=== PATIENT | female | born 1975 | race Caucasian/White ===

== ENCOUNTER 2017-11-10 18:57 | Emergency (ER) | payer OTHER ==
[2017-11-10 21:46] LABS: ADD MAN DIFF? NO
[2017-11-10 21:58] LABS: BASOPHILS % 0.6 % (0.0-2.0); EOSINOPHILS # 0.2 10^3/ul (0.0-0.5); EOSINOPHILS % 2.5 % (0.0-7.0); HEMATOCRIT 40.7 % (37.0-47.0); HEMOGLOBIN 13.4 g/dl (12.0-16.0); LYMPHOCYTES # 2.5 10^3/ul (0.8-2.9); LYMPHOCYTES % 38.1 % (15.0-51.0); MEAN CORPUSCULAR HEMOGLOBIN 28.5 pg (29.0-33.0); MEAN CORPUSCULAR HGB CONC 32.9 g/dl (32.0-37.0); MEAN CORPUSCULAR VOLUME 86.6 fl (82.0-101.0); MEAN PLATELET VOLUME 11.6 fl (7.4-10.4); MONOCYTE # 0.3 10^3/ul (0.3-0.9); MONOCYTES % 3.9 % (0.0-11.0); NEUTROPHIL # 3.5 10^3/ul (1.6-7.5); NEUTROPHILS % 54.6 % (39.0-77.0); PLATELET COUNT 203 10^3/UL (140-415); RED CELL DISTRIBUTION WIDTH 13.3 % (11.5-14.5)
[2017-11-10 21:58] LABS: WHITE BLOOD COUNT 6.5 10^3/ul (4.8-10.8)
[2017-11-10] MEDS: KETOROLAC 30 MG INJ IV (22:09)
[2017-11-10 22:33] LABS: ANION GAP 13 (8-16); BLOOD UREA NITROGEN 8 mg/dl (7-20); CALCIUM 9.6 mg/dl (8.4-10.2); CARBON DIOXIDE 23 mmol/L (21-31); CHLORIDE 110 mmol/L (97-110); CREATININE 0.65 mg/dl (0.44-1.00); GLUCOSE 94 mg/dl (70-220); POTASSIUM 3.8 mmol/L (3.5-5.1); SODIUM 142 mmol/L (135-144)
[2017-11-10 22:44] LABS: TROPONIN-I < 0.012 ng/ml (0.000-0.120)
== END 2017-11-10 23:16 | disposition home or self-care (01) ==
LOC: E/R 18:57
DX: R07.89 Other chest pain (principal); R40.2142 Coma scale, eyes open, spontaneous, at arrival to emergency department; R40.2252 Coma scale, best verbal response, oriented, at arrival to emergency department; R40.2362 Coma scale, best motor response, obeys commands, at arrival to emergency department
CPT/HCPCS: 36415; 71045; 80048; 81025; 84484; 85025; 93005; 96374; 99285-25

== ENCOUNTER 2018-02-27 17:35 | Emergency (ER) | payer OTHER ==
[2018-02-27 19:51] LABS: URINE PH (Dip) POC 6.5 (5.0-8.5)
[2018-02-27 19:51] LABS: URINE BLOOD (Dip) POC Negative (NEGATIVE); URINE GLUCOSE (Dip) POC Negative (NEGATIVE); URINE KETONES (Dip) POC Negative (NEGATIVE); URINE LEUKOCYTE EST (Dip) POC Negative (NEGATIVE); URINE NITRITE (Dip) POC Negative (NEGATIVE); URINE TOTAL PROTEIN POC Negative (NEGATIVE)
[2018-02-27] MEDS: ACETAMINOPHEN 500 MG TAB PO (19:52)
== END 2018-02-27 22:05 | disposition home or self-care (01) ==
LOC: FTE 22:05
DX: O26.891 Other specified pregnancy related conditions, first trimester (principal); R10.2 Pelvic and perineal pain; Z3A.01 Less than 8 weeks gestation of pregnancy
CPT/HCPCS: 36415; 76801; 76817; 81003; 81025; 84702; 99284-25

== ENCOUNTER 2018-03-16 00:56 | Emergency (ER) | payer OTHER ==
[2018-03-16 02:19] LABS: ADD MAN DIFF? NO
[2018-03-16 02:22] LABS: BASOPHILS % 0.4 % (0.0-2.0); EOSINOPHILS # 0.1 10^3/ul (0.0-0.5); HEMATOCRIT 35.2 % (37.0-47.0); HEMOGLOBIN 11.5 g/dl (12.0-16.0); LYMPHOCYTES # 1.5 10^3/ul (0.8-2.9); LYMPHOCYTES % 13.4 % (15.0-51.0); MEAN CORPUSCULAR HEMOGLOBIN 28.6 pg (29.0-33.0); MEAN CORPUSCULAR HGB CONC 32.7 g/dl (32.0-37.0); MEAN CORPUSCULAR VOLUME 87.6 fl (82.0-101.0); MEAN PLATELET VOLUME 10.8 fl (7.4-10.4); MONOCYTE # 0.4 10^3/ul (0.3-0.9); MONOCYTES % 3.3 % (0.0-11.0); NEUTROPHIL # 9.3 10^3/ul (1.6-7.5); NEUTROPHILS % 81.5 % (39.0-77.0); PLATELET COUNT 204 10^3/UL (140-415); RED BLOOD COUNT 4.02 10^6/ul (4.20-5.40); RED CELL DISTRIBUTION WIDTH 13.5 % (11.5-14.5)
[2018-03-16 02:22] LABS: WHITE BLOOD COUNT 11.4 10^3/ul (4.8-10.8)
[2018-03-16 02:27] LABS: ADD UMIC NO; UR ASCORBIC ACID NEGATIVE (NEGATIVE); UR BACTERIA FEW /HPF (NONE SEEN); UR BILIRUBIN (Dip) NEGATIVE (NEGATIVE); UR BLOOD (Dip) NEGATIVE (NEGATIVE); UR CLARITY SLIGHTLY CLOUDY (CLEAR); UR COLOR YELLOW (YELLOW); UR GLUCOSE (Dip) NEGATIVE (NEGATIVE); UR KETONES (Dip) NEGATIVE (NEGATIVE); UR LEUKOCYTE ESTERASE (Dip) NEGATIVE Leu/ul (NEGATIVE); UR MUCUS FEW /HPF (NONE SEEN); UR NITRITE (Dip) NEGATIVE (NEGATIVE); UR RBC 1 /HPF (0-5); UR SPECIFIC GRAVITY (Dip) 1.021 (1.003-1.030); UR SQUAMOUS EPITHELIAL CELL FEW /HPF (FEW); UR TOTAL PROTEIN (Dip) NEGATIVE (NEGATIVE); UR UROBILINOGEN (Dip) NEGATIVE (NEGATIVE); UR WBC 2 /HPF (0-5)
[2018-03-16 02:37] LABS: ALANINE AMINOTRANSFERASE 14 IU/L (13-69); ALBUMIN 3.8 g/dl (3.3-4.9); ALBUMIN/GLOBULIN RATIO 1.15; ALKALINE PHOSPHATASE 73 IU/L (42-121); ANION GAP 10 (5-13); ASPARTATE AMINO TRANSFERASE 22 IU/L (15-46); BLOOD UREA NITROGEN 9 mg/dl (7-20); CALCIUM 9.1 mg/dl (8.4-10.2); CARBON DIOXIDE 17 mmol/L (21-31); CHLORIDE 111 mmol/L (97-110); CREATININE 0.46 mg/dl (0.44-1.00); Estimated GFR > 60 mL/min (>60); GLUCOSE 152 mg/dl (70-220); POTASSIUM 3.4 mmol/L (3.5-5.1); SODIUM 138 mmol/L (135-144); TOTAL PROTEIN 7.1 g/dl (6.1-8.1)
[2018-03-16 02:41] LABS: INR 0.93; PROTIME 12.6 Sec (11.9-14.9)
[2018-03-16 02:42] LABS: PARTIAL THROMBOPLASTIN TIME 24.9 Sec (23.0-35.0)
[2018-03-16] MEDS: ACETAMINOPHEN 325 MG TAB PO (02:49)
[2018-03-16] MEDS: SOD CHLORIDE 0.9% 1,000 ML IV (02:52)
== END 2018-03-16 06:08 | disposition home or self-care (01) ==
LOC: E/R 00:56
DX: O26.891 Other specified pregnancy related conditions, first trimester (principal); R10.32 Left lower quadrant pain; Z3A.09 9 weeks gestation of pregnancy
CPT/HCPCS: 36415; 76801; 80053; 81001; 81003; 84702; 85025; 85610; 85730; 86850; 86900; 86901; 99285-25

== ENCOUNTER 2018-10-02 20:58 | Outpatient (CLI) | payer MEDICAID, OTHER ==
[2018-10-02 23:43] LABS: ADD UMIC NO; UR ASCORBIC ACID NEGATIVE (NEGATIVE); UR BILIRUBIN (Dip) NEGATIVE (NEGATIVE); UR BLOOD (Dip) NEGATIVE (NEGATIVE); UR CLARITY CLEAR (CLEAR); UR COLOR STRAW (YELLOW); UR GLUCOSE (Dip) 1+ mg/dL (NEGATIVE); UR KETONES (Dip) NEGATIVE (NEGATIVE); UR LEUKOCYTE ESTERASE (Dip) NEGATIVE Leu/ul (NEGATIVE); UR NITRITE (Dip) NEGATIVE (NEGATIVE); UR TOTAL PROTEIN (Dip) NEGATIVE (NEGATIVE); UR UROBILINOGEN (Dip) NEGATIVE (NEGATIVE)
== END 2018-10-03 00:45 | disposition home or self-care (01) ==
LOC: OBT 20:58 → L-D 21:00
DX: O26.893 Other specified pregnancy related conditions, third trimester (principal); Z3A.38 38 weeks gestation of pregnancy; R20.0 Anesthesia of skin
CPT/HCPCS: 76818; 81003

== ENCOUNTER 2018-10-03 00:52 | Emergency (ER) | payer SELFPAY, MEDICAID | END 2018-10-03 01:50 | disposition left against medical advice (07) | LOC: E/R 00:52 | DX: Z53.21 Procedure and treatment not carried out due to patient leaving prior to being seen by health care provider (principal) ==

== ENCOUNTER 2018-10-03 22:01 | Inpatient (IN) | payer MEDICAID ==
[2018-10-03] MEDS ORDERED: ACETAMINOPHEN 325 MG TAB PO (23:30)
[2018-10-03] MEDS ORDERED: ONDANSETRON 4 MG INJ IV (23:30)
[2018-10-04] MEDS: LACTATED RINGER'S 1,000 ML IV ×4 (00:17→19:22)
[2018-10-04 00:26] LABS: ADD MAN DIFF? NO
[2018-10-04 00:29] LABS: WHITE BLOOD COUNT 6.8 10^3/ul (4.8-10.8)
[2018-10-04 00:29] LABS: BASOPHILS % 0.4 % (0.0-2.0); EOSINOPHILS # 0.3 10^3/ul (0.0-0.5); EOSINOPHILS % 3.9 % (0.0-7.0); HEMATOCRIT 36.9 % (37.0-47.0); HEMOGLOBIN 12.1 g/dl (12.0-16.0); LYMPHOCYTES # 1.9 10^3/ul (0.8-2.9); LYMPHOCYTES % 27.4 % (15.0-51.0); MEAN CORPUSCULAR HEMOGLOBIN 29.2 pg (29.0-33.0); MEAN CORPUSCULAR HGB CONC 32.8 g/dl (32.0-37.0); MEAN CORPUSCULAR VOLUME 88.9 fl (82.0-101.0); MEAN PLATELET VOLUME 11.2 fl (7.4-10.4); MONOCYTE # 0.4 10^3/ul (0.3-0.9); MONOCYTES % 5.8 % (0.0-11.0); NEUTROPHIL # 4.2 10^3/ul (1.6-7.5); NEUTROPHILS % 62.2 % (39.0-77.0); PLATELET COUNT 168 10^3/UL (140-415); RED BLOOD COUNT 4.15 10^6/ul (4.20-5.40); RED CELL DISTRIBUTION WIDTH 15.2 % (11.5-14.5)
[2018-10-04 00:49] LABS: PROTIME 12.3 Sec (11.9-14.9)
[2018-10-04 00:50] LABS: PARTIAL THROMBOPLASTIN TIME 26.4 Sec (23.0-35.0)
[2018-10-04 01:17] LABS: HEPATITIS B SURFACE ANTIGEN NEGATIVE (NEGATIVE)
[2018-10-04] MEDS: AZITHROMYCIN 500MG/NS (PMX) 250 ML IV (14:54)
[2018-10-04] MEDS ORDERED: OXYTOCIN 30 UNITS/LR 500 ML BAG IV (15:13)
[2018-10-04] MEDS ORDERED: OXYTOCIN 10 UNIT INJ (15:21)
[2018-10-04] MEDS ORDERED: morphine SULFATE/PF (10 MG/10 ML) INJ (15:21)
[2018-10-04] MEDS: CEFAZOLIN 2 GM/50 ML (PMX) 50 ML IVPB ×2 (15:30→23:01)
[2018-10-04] MEDS ORDERED: ONDANSETRON 4 MG INJ IV (17:00)
[2018-10-04] MEDS ORDERED: NALOXONE (0.4 MG/ML) INJ IV (17:00)
[2018-10-04] MEDS ORDERED: DIPHENHYDRAMINE 50 MG INJ IV (17:00)
[2018-10-04 17:12] LABS: RAPID PLASMA REAGIN NONREACTIVE (NR)
[2018-10-04] MEDS: KETOROLAC 30 MG INJ IV (17:41)
[2018-10-04] MEDS: VANCOMYCIN 1 GM (PMX) 250 ML IVPB (17:56)
[2018-10-04] MEDS: morphine 2 MG INJ IV (18:21)
[2018-10-04] MEDS: OXYTOCIN 30 UNITS/LR 500 ML IV (19:20)
[2018-10-04] MEDS: ACETAMINOPHEN 500 MG TAB PO (20:45)
[2018-10-04] MEDS ORDERED: LANOLIN HPA 1 PKT TOP (22:00)
[2018-10-04] MEDS ORDERED: NA PHOSPHATE/BIPHOS 133 ML ENEMA PR (22:00)
[2018-10-04] MEDS ORDERED: OXYTOCIN 30 UNITS/LR 500 ML IV (22:00)
[2018-10-04] MEDS ORDERED: CARBOPROST 250 MCG INJ IM (22:00)
[2018-10-04] MEDS ORDERED: MISOPROSTOL 200 MCG TAB PR (22:00)
[2018-10-04] MEDS ORDERED: METHYLERGONOVINE 0.2 MG INJ IM (22:00)
[2018-10-05] MEDS: LACTATED RINGER'S 1,000 ML IV ×4 (00:39→15:22)
[2018-10-05 05:10] LABS: ADD MAN DIFF? NO
[2018-10-05 05:19] LABS: BASOPHILS % 0.4 % (0.0-2.0); EOSINOPHILS # 0.1 10^3/ul (0.0-0.5); EOSINOPHILS % 0.8 % (0.0-7.0); HEMATOCRIT 34.9 % (37.0-47.0); HEMOGLOBIN 11.3 g/dl (12.0-16.0); LYMPHOCYTES # 1.3 10^3/ul (0.8-2.9); LYMPHOCYTES % 15.6 % (15.0-51.0); MEAN CORPUSCULAR HGB CONC 32.4 g/dl (32.0-37.0); MEAN CORPUSCULAR VOLUME 89.5 fl (82.0-101.0); MEAN PLATELET VOLUME 11.2 fl (7.4-10.4); MONOCYTE # 0.4 10^3/ul (0.3-0.9); MONOCYTES % 5.1 % (0.0-11.0); NEUTROPHIL # 6.6 10^3/ul (1.6-7.5); NEUTROPHILS % 77.7 % (39.0-77.0); PLATELET COUNT 149 10^3/UL (140-415); RED CELL DISTRIBUTION WIDTH 15.1 % (11.5-14.5)
[2018-10-05 05:19] LABS: WHITE BLOOD COUNT 8.5 10^3/ul (4.8-10.8)
[2018-10-05] MEDS: CLINDAMYCIN 300 MG CAP PO ×4 (05:44→23:33)
[2018-10-05] MEDS: CEFAZOLIN 2 GM/50 ML (PMX) 50 ML IVPB ×2 (07:00→14:43)
[2018-10-05] MEDS: KETOROLAC 30 MG INJ IV ×2 (08:26→14:50)
[2018-10-05] MEDS: BISACODYL 10 MG SUPP PR (09:00)
[2018-10-05] MEDS: SENNA/DOCUSATE NA (8.6MG/50MG) TAB PO ×2 (09:38→20:57)
[2018-10-05] MEDS: HYDROCODONE/APAP (5/325) TAB PO (19:35)
[2018-10-05] MEDS: IBUPROFEN 800 MG TAB PO (22:13)
[2018-10-06] MEDS: HYDROCODONE/APAP (5/325) TAB PO (03:30)
[2018-10-06] MEDS: CLINDAMYCIN 300 MG CAP PO ×3 (05:37→18:14)
[2018-10-06] MEDS: IBUPROFEN 800 MG TAB PO ×3 (05:37→22:27)
[2018-10-06] MEDS: SENNA/DOCUSATE NA (8.6MG/50MG) TAB PO ×2 (09:52→21:00)
[2018-10-06] MEDS ORDERED: ACETAMINOPHEN 325 MG TAB PO (10:00)
[2018-10-06] MEDS: OXYCODONE/ACETAMINOPHEN (5/325) TAB PO (21:11)
[2018-10-07] MEDS: CLINDAMYCIN 300 MG CAP PO ×3 (00:22→12:07)
[2018-10-07] MEDS: IBUPROFEN 800 MG TAB PO ×2 (06:03→13:43)
[2018-10-07] MEDS: MEASLES,MUMPS,RUBELLA VACCINE INJ SC* (09:00)
[2018-10-07] MEDS: SENNA/DOCUSATE NA (8.6MG/50MG) TAB PO (09:00)
[2018-10-07] MEDS: HYDROCODONE/APAP (5/325) TAB PO (10:17)
[2018-10-07] MEDS: DIPHTH/TET/ACEL PERTUSS (ADULT) 0.5 ML VIAL IM* (13:45)
== END 2018-10-07 15:00 | disposition home or self-care (01) | DRG 788 ==
LOC: L-D 10-04 01:20 → OBT 22:01 → L-D 22:02 → OBT 22:55 → L-D 22:55 → MS1 10-04 20:26
PROVIDERS: Obstetrics & Gynecology
PROC: 10D00Z1 Extraction of Products of Conception, Low, Open Approach (ICD-10-PCS; principal; 2018-10-04 16:00)
DX: O34.211 Maternal care for low transverse scar from previous cesarean delivery (principal); O99.214 Obesity complicating childbirth; Z3A.38 38 weeks gestation of pregnancy; Z37.0 Single live birth
CPT/HCPCS: 76815; 76816; 76818; 81003; 85025; 85610; 85730; 86592; 86850; 86900; 86901; 87340; 90715; 99464